=== PATIENT | male | born 1955 | race Caucasian/White ===

== ENCOUNTER 2019-08-17 19:07 | Emergency (ER) | payer OTHER, SELFPAY ==
[2019-08-17 20:31] LABS: Absolute Lymphocytes (CBC) 1.4 K/uL (0.7-4.9); Basophils % 0.8 % (0-1.3); Hematocrit 47.1 % (39.6-49.0); Lymphocytes % 17.4 % (15.3-44.8); RBC Red Blood Cell Count 5.16 M/uL (4.33-5.43)
[2019-08-17 20:33] LABS: Protime INR 1.12
--- NOTE | 2019-08-17 20:42 | RAD REPORT ---
EXAM DESCRIPTION: RAD - Chest Single View - 08/17/2019 8:20 pm CLINICAL HISTORY: Palpitations COMPARISON: November 2008 TECHNIQUE: AP portable chest image was obtained 2012 hours . FINDINGS: Lungs are clear. Heart and vasculature are normal. No measurable pleural effusion and no p neumothorax. No acute bony abnormality seen. No acute aortic findings suspected. No suspicious interv al change. IMPRESSION: No acute cardiopulmonary process.
[2019-08-17 20:47] LABS: ALT/SGPT 35 U/L (12-78); AST/SGOT 18 U/L (15-37); Albumin 4.4 g/dL (3.4-5.0); Alkaline Phosphatase 72 U/L (45-117); BUN Blood Urea Nitrogen 11 mg/dL (7-18); Bicarbonate 25 mmol/L (21-32); Bilirubin Direct 0.2 mg/dL (0-0.2); Bilirubin Total 0.7 mg/dL (0.2-1.0); Glucose Level 96 mg/dL (74-106); Magnesium 2.2 mg/dL (1.8-2.4); NT PRO-BNP 30 pg/mL (<125); Potassium 3.9 mmol/L (3.5-5.1); Protein, Total 7.3 g/dL (6.4-8.2); Sodium Level 141 mmol/L (136-145); Troponin (Emerg Dept Use Only) < 0.02 ng/mL (0.0-0.045)
--- NOTE | 2019-08-17 21:53 | ER ---
Nurse's Notes [facility] Name: Heri Duncan Age: 64 yrs Sex: Male : 1955 Arrival Date: 08/17/2019 Time: 19:12 Bed 27 Private MD: out of town, doctor Diagnosis: Palpitations Presentation: 08/17 19:32 Presenting complaint: Patient states: he states he was checking his pulse oximeter this la1 morning and noticed his pulse was 98 then would drop into the 50s also he was getting different blood pressure readings between his right and left arms also he has been feeling weak, fidgety, and fatigued lately. Transition of care: patient was not received from another setting of care. Onset of symptoms was August 17, 2019. Risk Assessment: Do you want to hurt yourself or someone else? Patient reports no desire to harm self or others. Initial Sepsis Screen: Does the patient meet any 2 criteria? No. Patient's initial sepsis screen is negative. Does the patient have a suspected source of infection? No. Patient's initial sepsis screen is negative. Care prior to arrival: None. 19:32 Method Of Arrival: Ambulatory la1 19:32 Acuity: GRISELDA 3 la1 Historical: - Allergies: 19:40 No Known Allergies; la1 - Home Meds: 19:40 lisinopril-hydrochlorothiazide oral oral [Active]; Lovastatin Oral [Active]; Xanax Oral la1 [Active]; Aspirin Oral [Active]; - PMHx: 19:40 Hypertension; Hyperlipidemia; Anxiety; la1 - PSHx: 19:40 Tonsillectomy; la1 - Immunization history:: Adult Immunizations up to date. - Social history:: Smoking status: Patient/guardian denies using tobacco. - Ebola Screening: : No symptoms or risks identified at this time. Screenin:52 Abuse screen: Denies threats or abuse. Denies injuries from another. Nutritional mg2 screening: No deficits noted. Tuberculosis screening: No symptoms or risk factors identified. Fall Risk IV access (20 points). Assessment: 19:52 General: Appears in no apparent distress. comfortable, Behavior is calm, cooperative. mg2 Pain: Denies pain. Neuro: Level of Consciousness is awake, alert, obeys commands, Oriented to person, place, time, situation. Neuro: Reports weakness. Cardiovascular: Reports since irregular pulse. Respiratory: Airway is patent Respiratory effort is even, unlabored, Respiratory pattern is regular, symmetrical. GI: No signs and/or symptoms were reported involving the gastrointestinal system. : No signs and/or symptoms were reported regarding the genitourinary system. EENT: No signs and/or symptoms were reported regarding the EENT system. Derm: Skin is intact, is healthy with good turgor, Skin is pink, warm \T\ dry. normal. Musculoskeletal: Circulation, motion, and sensation intact. Capillary refill < 3 seconds. 20:57 Reassessment: No changes from previously documented assessment. Patient and/or family ad1 updated on plan of care and expected duration. Pain level reassessed. Patient is alert, oriented x 3, equal unlabored respirations, skin warm/dry/pink. Pain: Denies pain. Pain: Denies pain. 21:52 Reassessment: Patient appears in no apparent distress at this time. No changes from ad1 previously documented assessment. Patient and/or family updated on plan of care and expected duration. Pain level reassessed. Patient is alert, oriented x 3, equal unlabored respirations, skin warm/dry/pink. Pain: Denies pain. 22:15 Pain: Denies pain. ad1 Vital Signs: 19:40 BP 156 / 84 RA (auto/reg); Pulse 88; Resp 16 S; Temp 98.2(O); Pulse Ox 97% on R/A; la1 Weight 98.88 kg (R); Height 5 ft. 8 in. (172.72 cm) (R); Pain 0/10; 19:40 BP 150 / 81 LA Sitting (auto/reg); la1 20:56 BP 135 / 76; Pulse 87; Resp 18; Pulse Ox 97% ; ad1 21:53 BP 145 / 94; Pulse 82; Resp 18; Pulse Ox 96% ; ad1 19:40 Body Mass Index 33.15 (98.88 kg, 172.72 cm) la1 Vitals: 19:40 The patient's bilateral blood pressures are equal. la1 ED Course: 19:12 Patient arrived in ED. ag5 19:13 out of town, doctor is Private Physician. ag5 19:32 Vineet Gipson NP is PHCP. pm1 19:32 Hugh Zamora MD is Attending Physician. pm1 19:38 Triage completed. la1 19:40 Arm band placed on Patient placed in an exam room, on a stretcher, on quality assurance monitor body, la1 on pulse oximetry. EKG completed in triage. Results shown to MD. Family accompanied patient. 19:53 Patient has correct armband on for positive identification. Placed in gown. Cardiac mg2 monitor on. Pulse ox on. NIBP on. 20:14 Missed attempt(s): 22 gauge in right forearm. lt1 20:14 Initial lab(s) drawn, by me, sent to lab. EKG done, by ED staff. Inserted saline lock: lt1 22 gauge in left hand, using aseptic technique. 20:22 XRAY Chest (1 view) In Process Unspecified. EDMS 22:15 No provider procedures requiring assistance completed. IV discontinued, intact, ad1 bleeding controlled, Pressure dressing applied. Patient maintains SpO2 saturation greater than 95% on room air. Administered Medications: No medications were administered Outcome: 21:52 Discharge ordered by MD. pm1 22:15 Discharged to home ad1 22:15 Condition: good 22:15 Discharge instructions given to patient, Instructed on discharge instructions, follow ad1 up and referral plans. Demonstrated understanding of instructions, follow-up care. 22:45 Patient left the ED. ad1 Signatures: Dispatcher [employer] EDMS Deyanira Sullivan RN RN ad1 Kenny Yi RN RN la1 Vineet Gipson, STACY ELEMENTARY READING SPECIALIST pm1 Khadar Vargas RN RN mg2 Gaskin, Ajare ag5 [address] lt1 Corrections: (The following items were deleted from the chart) 22:44 22:15 Pain: Denies pain. ad1 ad1
--- NOTE | 2019-08-17 21:54 | EDPHYS ---
Physician Documentation [facility] Name: Heri Duncan Age: 64 yrs Sex: Male : 1955 Arrival Date: 08/17/2019 Time: 19:12 Bed 27 Private MD: out of town, doctor ED Physician Hugh Zamora HPI: 08/17 19:52 This 64 yrs old Male presents to ER via Ambulatory with complaints of pm1 Irregular Pulse, High Blood Pressure. 19:52 The patient presents with a history of irregular heart beat. Context: The symptoms pm1 occur noticed while checking his pulse ox at home. heart rate changing between 50 to 90s. Onset: The symptoms/episode began/occurred 2 week(s) ago. Duration: The patient or guardian reports multiple episodes, that have now resolved. Modifying factors: The symptoms are aggravated by nothing. The symptoms are alleviated by nothing. Associated signs and symptoms: Pertinent negatives: chest pain, fever, SOB, vomiting. Severity of symptoms: in the emergency department the symptoms have resolved. The patient has not experienced similar symptoms in the past. The patient has not recently seen a physician. Historical: - Allergies: 19:40 No Known Allergies; la1 - Home Meds: 19:40 lisinopril-hydrochlorothiazide oral oral [Active]; Lovastatin Oral [Active]; Xanax Oral la1 [Active]; Aspirin Oral [Active]; - PMHx: 19:40 Hypertension; Hyperlipidemia; Anxiety; la1 - PSHx: 19:40 Tonsillectomy; la1 - Immunization history:: Adult Immunizations up to date. - Social history:: Smoking status: Patient/guardian denies using tobacco. - Ebola Screening: : No symptoms or risks identified at this time. ROS: 19:52 Constitutional: Negative for fever, chills, and weight loss, Eyes: Negative for injury, pm1 pain, redness, and discharge, ENT: Negative for injury, pain, and discharge, Neck: Negative for injury, pain, and swelling, Respiratory: Negative for shortness of breath, cough, wheezing, and pleuritic chest pain. 19:52 Abdomen/GI: Negative for abdominal pain, nausea, vomiting, diarrhea, and constipation, Back: Negative for injury and pain, : Negative for injury, bleeding, discharge, and swelling, MS/Extremity: Negative for injury and deformity, Skin: Negative for injury, rash, and discoloration, Neuro: Negative for headache, weakness, numbness, tingling, and seizure. 19:52 Cardiovascular: Positive for palpitations, Negative for chest pain, edema. Exam: 19:52 Constitutional: This is a well developed, well nourished patient who is awake, alert, pm1 and in no acute distress. Head/Face: Normocephalic, atraumatic. Eyes: Pupils equal round and reactive to light, extra-ocular motions intact. Lids and lashes normal. Conjunctiva and sclera are non-icteric and not injected. Cornea within normal limits. Periorbital areas with no swelling, redness, or edema. ENT: Nares patent. No nasal discharge, no septal abnormalities noted. Tympanic membranes are normal and external auditory canals are clear. Oropharynx with no redness, swelling, or masses, exudates, or evidence of obstruction, uvula midline. Mucous membranes moist. Neck: Trachea midline, no thyromegaly or masses palpated, and no cervical lymphadenopathy. Supple, full range of motion without nuchal rigidity, or vertebral point tenderness. No Meningismus. Chest/axilla: Normal chest wall appearance and motion. Nontender with no deformity. No lesions are appreciated. Cardiovascular: Regular rate and rhythm with a normal S1 and S2. No gallops, murmurs, or rubs. Normal PMI, no JVD. No pulse deficits. Respiratory: Lungs have equal breath sounds bilaterally, clear to auscultation and percussion. No rales, rhonchi or wheezes noted. No increased work of breathing, no retractions or nasal flaring. Abdomen/GI: Soft, non-tender, with normal bowel sounds. No distension or tympany. No guarding or rebound. No evidence of tenderness throughout. Back: No spinal tenderness. No costovertebral tenderness. Full range of motion. Skin: Warm, dry with normal turgor. Normal color with no rashes, no lesions, and no evidence of cellulitis. MS/ Extremity: Pulses equal, no cyanosis. Neurovascular intact. Full, normal range of motion. Vital Signs: 19:40 BP 156 / 84 RA (auto/reg); Pulse 88; Resp 16 S; Temp 98.2(O); Pulse Ox 97% on R/A; la1 Weight 98.88 kg (R); Height 5 ft. 8 in. (172.72 cm) (R); Pain 0/10; 19:40 BP 150 / 81 LA Sitting (auto/reg); la1 20:56 BP 135 / 76; Pulse 87; Resp 18; Pulse Ox 97% ; ad1 21:53 BP 145 / 94; Pulse 82; Resp 18; Pulse Ox 96% ; ad1 19:40 Body Mass Index 33.15 (98.88 kg, 172.72 cm) la1 MDM: 19:44 ED course: Patient's bilateral blood pressures without significant difference between pm1 each other. 19:45 Patient medically screened. pm1 21:51 Data reviewed: vital signs. Data interpreted: Pulse oximetry: on room air is 97 %. pm1 Interpretation: normal. Counseling: I had a detailed discussion with the patient and/or guardian regarding: the historical points, exam findings, and any diagnostic results supporting the discharge/admit diagnosis, lab results, radiology results, the need for outpatient follow up, to return to the emergency department if symptoms worsen or persist or if there are any questions or concerns that arise at home. 08/17 19:40 Order name: Basic Metabolic Panel; Complete Time: : mg2 08/17 19:40 Order name: CBC with Diff; Complete Time: : mg2 08/17 19:40 Order name: LFT's; Complete Time: : mg2 08/17 19:40 Order name: Magnesium; Complete Time: : mg2 08/17 19:40 Order name: NT PRO-BNP; Complete Time: : mg2 08/17 19:40 Order name: PT-INR; Complete Time: : mg2 08/17 19:40 Order name: Troponin (emerg Dept Use Only); Complete Time: 21: mg2 08/17 19:40 Order name: XRAY Chest (1 view); Complete Time: 21:39 mg2 08/17 19:40 Order name: EKG; Complete Time: 19:42 mg2 08/17 19:40 Order name: Cardiac monitoring; Complete Time: 20:19 mg2 08/17 19:40 Order name: EKG - Nurse/Tech; Complete Time: 20:19 mg2 08/17 19:40 Order name: IV Saline Lock; Complete Time: 20:19 mg2 08/17 19:40 Order name: Labs collected and sent; Complete Time: : mg2 08/17 19:40 Order name: O2 Per Protocol; Complete Time: : mg2 08/17 19:40 Order name: O2 Sat Monitoring; Complete Time: : mg2 Administered Medications: No medications were administered Disposition: 08/18 06:05 Co-signature as Attending Physician, Hugh Zamora MD I agree with the assessment and tw4 plan of care. Disposition: 08/17/19 21:52 Discharged to Home. Impression: Palpitations. - Condition is Stable. - Discharge Instructions: Palpitations. - Medication Reconciliation Form, Thank You Letter, Antibiotic Education, Prescription Opioid Use form. - Follow up: Emergency Department; When: As needed; Reason: Worsening of condition. Follow up: Private Physician; When: 2 - 3 days; Reason: Recheck today's complaints, Continuance of care, Re-evaluation by your physician. - Problem is new. - Symptoms have improved. Signatures: Dispatcher [employer] EDNV Deyanira Sullivan RN RN ad1 Kenny Yi RN RN la1 Vineet Gipson, PIPELINER PIPELINER pm1 Hugh Zamora MD MD tw4 Khadar Vargas RN RN mg2 Corrections: (The following items were deleted from the chart) 08/17 22:45 21:52 08/17/2019 21:52 Discharged to Home. Impression: Palpitations. Condition is ad1 Stable. Forms are Medication Reconciliation Form, Thank You Letter, Antibiotic Education, Prescription Opioid Use. Follow up: Emergency Department; When: As needed; Reason: Worsening of condition. Follow up: Private Physician; When: 2 - 3 days; Reason: Recheck today's complaints, Continuance of care, Re-evaluation by your physician. Problem is new. Symptoms have improved. pm1
[2019-08-17 23:19] VITALS: TEMP 98.2
[2019-08-17 23:21] VITALS: BP 145/94; O2SAT 96
--- NOTE | 2019-08-18 13:38 | EKG ---
Test Date: 2019-08-17 Test Time: 19:27:14 Marketing Database Coordinator: JIMMYT MEASUREMENT RESULTS: Intervals: Rate: 92 VT: 168 QRSD: 76 QT: 344 QTc: 425 [place]: P: 48 VT: 168 QRS: -19 T: -7 INTERPRETIVE STATEMENTS: Normal sinus rhythm Moderate voltage criteria for LVH, may be normal variant Borderline ECG Compared to ECG 08/17/2019 19:26:39 Fusion complex(es) no longer present Electronically Signed On 08-18-19 13:37:46 CDT by Marko Deleon
--- NOTE | 2019-08-18 13:39 | EKG ---
Test Date: 2019-08-17 Test Time: 19:26:39 Nurse Aide Evaluator: JIMMYT MEASUREMENT RESULTS: Intervals: Rate: 88 MT: 166 QRSD: 82 QT: 340 QTc: 411 [place]: P: 37 MT: 166 QRS: -20 T: -4 INTERPRETIVE STATEMENTS: Sinus rhythm Moderate voltage criteria for LVH, may be normal variant Borderline ECG Compared to ECG 12/10/2008 13:56:20 Ventricular premature complex(es) no longer present Electronically Signed On 08-18-19 13:38:14 CDT by Marko Deleon
== END 2019-08-17 22:45 | disposition home or self-care (01) ==
LOC: ER 19:07
DX: R00.2 Palpitations (principal); I10 Essential (primary) hypertension; E78.5 Hyperlipidemia, unspecified; F41.9 Anxiety disorder, unspecified; Z79.82 Long term (current) use of aspirin
CPT/HCPCS: 36415; 71045; 80048; 80076; 83735; 83880; 84484; 85025; 85610; 93005; 99285

== ENCOUNTER 2025-03-12 14:02 | Emergency (ER) | payer OTHER ==
--- OUTSIDE RECORDS SUMMARY | 2025-03-12 14:05 | XMS REPORT | Continuity of Care Document ---
Author Name Unknown Address [address] [place] [address] [facility] Address [address] [place] [address] Care Team Providers Care Mold Sheet Cleaner Name Role Phone KRISTEN STONE Primary Care Physician Unavailab Eloy Lee Attending Clinician Unavailable RADIOLOGY Attending Clinician Unavailable Radiology Attending Clinician Unavailable JAVON POOLE Attending Clinician Unavail able JAVON POOLE Attending Clinician Unavail able Javon Poole MD Attending Clinician [phone] OSVALDO WINTER Attending Clinician Unavailable Osvaldo Winter MD Attending Clinician [phone] Doctor Unassigned, Kotlik Attending Clinician U navailable Lab, Ang - Db Attending Clinician Unavailable LEILA OBONOMELANIA DAWNARIA Attending Clinician Un available ACOSTA VEGA Admitting Clinician Unavailable JAVON POOLE Admitting Clinician Unavail able Payers Payer Name Policy Type Policy Number Effective Date Expirati on Date Source [facility] [employer] [place] [id number] 2021 00:00:00 Problems Condition Name Condition Details Condition Category Status Onset Date Resolution Date Last Treatment Date Treating Clinician Comments Source No known active problems No known active problems Disease [facility] Allergies, Adverse Reactions, Alerts Allergy Name Allergy Type Status Severity Reaction(s) Onset Date Inactive Date Treating Clinician Comments Source NO KNOWN ALLERGIE S Drug Class Active [facility] Social History Social Habit Start Date Stop Date Quantity Comments Source History of tobacco use Current smoker [facility] [place] [place] Exposure to SARS-CoV-2 (event) 2022-12-04 00:00:00 2022-12-14 08:41:[address] [facility] [place] [place] Tobacco use and exposure 2022-05-09 00:00:00 2022-05-09 00:00:00 Smokeless tobacco non-user [facility] [place] [place] Sex Ass[birth year] At 1955 00:00:00 1955 00:00:[address] [facility] [place] [place] Smoking Status Start Date Stop Date Source Ex-smoker 2022-05-09 00:00:00 2022-[facility]09 [facility] Ordered Medication Name Filled Medication Name Start Date Stop Date Current Medication? Ordering Clinician Indication Dosage Frequency Signature (SIG) Comments Components Source gabapentin 100 mg capsule 08-01 00:00: 00 Yes [id number] 100mg Take 1 capsule by mouth in the morning and 1 capsule at noon and 1 capsule in the evening. [facility] losartan 100 mg tablet 04-18 00:00: 00 Yes 100mg Take 100 mg by mouth daily. [facility] lovastatin 40 mg tablet 04-18 00:00: 00 Yes TAKE ONE (1) TABLET(S) BY MOUTH ONCE DAILY WITH EVENING MEAL. [facility] ALPRAZolam 0.5 mg tablet 04-17 00:00: 00 Yes .5mg Take 0.5 mg by mouth 2 (two) times daily. [facility] Vital Signs Vital Name Observation Time Observation Value Comments S soumya Systolic blood pressure 2022-08-01 14:17:00 143 mm[Hg] [facility] Diastolic blood pressure 2022-08-01 14:17:00 84 mm[Hg] [facility] Heart rate 2022-08-01 14:17:00 72 /min [facility] Body height 2022-08-01 14:17:00 172.7 cm [facility] Body weight 2022-08-01 14:17:00 104.327 kg [facility] BMI 2022-08-01 14:17:00 34.97 kg/m2 [facility] Oxygen saturation in Arterial blood by Pulse oximetry 2022-08-01 14:17:00 98 /min [facility] [place] [place] Procedures Procedure Date / Time Performed Performing Clinicia n Source CT ABDOMEN PELVIS WO CONTRAST 2022-12-18 18:32:[address] [facility] [place] [place] NOTICE OF PRIVACY PRACTICES 2022-12-18 17:32:02 Doctor Unassigned, Kotlik [facility] [place] [place] CONSENT/REFUSAL FOR DIAGNOSIS AND TREATMENT 2022-12-18 17:31:42 Doctor Unassigned, Kotlik [facility] [place] [place] ASSIGNMENT OF BENEFITS 2022-12-18 17:31:19 Docto r Unassigned, Kotlik [facility] [place] [place] Encounters Start Date/Time End Date/Time Encounter Type Admission Type Attending Clinicians Care Facility Care Department Encounter ID Source 2021-12-21 13:20:45 Outpatient Raphael [facility] [id number] [facility] 2021-12-21 11:59:27 Outpatient Raphael [facility] [id number] [facility] 2022-12-18 11:33:29 2022-12-18 23:59:00 Outpatient R RADIOLOGY [facility] [id number] [facility] 2022-12-18 11:33:29 2022-12-18 23:59:00 Hospital Encounter Radiology [facility] [id number] 350.1.13.10 [id number] [id number] [facility] 2022-12-18 00:00:00 2022-12-18 00:00:00 Outpatient R RADIOLOGY [facility] [id number] [facility] 2022-08-01 09:20:00 2022-08-01 09:46:40 Outpatient R JAVON POOLE [facility] [id number] [facility] 2022-08-01 09:20:00 2022-08-01 09:46:40 Office Visit Javon Pooel [facility] [id number] 350.1.13.10 4.2.7.2.686 [id number] [facility] 2022-07-28 09:04:21 2022-07-28 23:59:00 Outpatient R OSVALDO WINTER [facility] [id number] [facility] 2022-07-28 09:04:21 2022-07-28 23:59:00 [facility] [id number] [facility] 2022-07-28 09:04:21 2022-07-28 23:59:00 Hospital Encounter Osvaldo Winter [facility] 1..840.114 350.1.13.10 4.2.7.2.686 [id number] [facility] 2022-06-06 00:00:00 2022-06-06 00:00:00 Orders Only Doctor Unassigned, Kotlik [facility] 1..840.114 350.1.13.10 4.2.7.2.686 [id number] [facility] 2022-05-15 13:52:14 2022-05-15 23:59:00 Outpatient JAVON MONROE [facility] [id number] [facility] 2022-05-15 13:50:00 2022-05-15 23:59:00 Hospital Encounter Javon Poole [facility] 1..840.114 350.1.13.10 4.2.7.2.686 [id number] [facility] 2022-05-15 00:00:00 2022-05-15 00:00:00 Outpatient Melania POOLE JAVON POOLE JAVON [facility] [id number] [facility] 2022-05-10 12:00:00 2022-05-10 12:15:00 Form Drafter Visit Lab, Ang - Db Javon Poole [facility] [id number] 350.1.13.10 [id number] [id number] [facility] 2022-05-10 12:00:00 2022-05-10 12:00:00 Outpatient JAVON MONROE IMELDA JAVON [facility] [id number] [facility] 2022-05-09 14:12:27 2022-05-09 23:59:00 Outpatient Melania IMELDAJAVON PATHAK JAVON [facility] [id number] [facility] 2022-05-09 13:00:00 2022-05-09 14:02:13 Office Visit Javon Poole [facility] 1.2.840.114 350.1.13.10 4.2.7.2.686 [id number] [facility] 2022-05-09 13:00:00 2022-05-09 14:02:13 Outpatient JAVON MONROE IMELDA JAVON [facility] [id number] [facility] 2022-05-09 00:00:00 2022-05-09 00:00:00 Orders Only Doctor Unassigned, Kotlik [facility] 1.2.840.114 350.1.13.10 4.2.7.2.686 [id number] [facility] 2022-02-06 09:45:00 2022-02-06 13:05:00 Outpatient YONI DEE [facility] [id number]
--- NOTE | 2025-03-12 14:23 | ER ---
Nurse's Notes [facility] Name: Heri Duncan Age: 69 yrs Sex: Male : 1955 Arrival Date: 03/12/2025 Time: 14:02 Bed 11 Private MD: Diagnosis: De quervain's tenosynovitis Presentation: 03/12 14:11 Chief complaint: Patient states: there a knot or fluid under the skin that is painful , iw started a week ago, denies injury. Coronavirus screen: At this time, the client does not indicate any symptoms associated with coronavirus-19. Ebola Screen: No symptoms or risks identified at this time. Initial Sepsis Screen: Does the patient meet any 2 criteria? No. Patient's initial sepsis screen is negative. Does the patient have a suspected source of infection? No. Patient's initial sepsis screen is negative. Risk Assessment: Do you want to hurt yourself or someone else? Patient reports no desire to harm self or others. Onset of symptoms was March 05, 2025. 14:11 Method Of Arrival: Ambulatory iw 14:11 Acuity: GRISELDA 4 iw Historical: - Allergies: 14:13 No Known Allergies; iw - PMHx: 14:13 Anxiety; Hyperlipidemia; Hypertension; iw - Immunization history:: Adult Immunizations. - Infectious Disease History:: Denies. - Social history:: Smoking status: Patient denies any tobacco usage or history of. Screenin:41 [facility] ED Fall Risk Assessment (Adult) History of falling in the last 3 months, iw including since admission No falls in past 3 months (0 pts) Confusion or Disorientation No (0 pts) Intoxicated or Sedated No (0 pts) Impaired Gait No (0 pts) Mobility Assist Device Used No (0 pt) Altered Elimination No (0 pt) Score/Fall Risk Level 0 - 2 = Low Risk Maintained a safe environment, Hourly rounding (assess needs \T\ fall precautionary measures) done. Abuse screen: Denies threats or abuse. Nutritional screening: No deficits noted. Tuberculosis screening: No symptoms or risk factors identified. Assessment: 14:40 General: Appears in no apparent distress. Behavior is calm, cooperative, appropriate iw for age. Pain: Complains of pain in L thumb Pain radiates to left hand Quality of pain is described as aching, throbbing. Musculoskeletal: Circulation, motion, and sensation intact. Capillary refill < 3 seconds, in left fingers. Reports pain in L wrist/thumb area. Vital Signs: 14:11 BP 155 / 81; Pulse 99; Resp 16; Temp 97.8; Pulse Ox 99% on R/A; iw ED Course: 14:04 Patient arrived in ED. im 14:09 Justine Jansen MD is Attending Physician. sw6 14:12 Triage completed. iw 14:13 Arm band placed on. iw 14:22 Mayito Meraz MD is Referral Physician. sw6 14:38 Velcro wrist splint applied to left wrist. iw 14:41 No provider procedures requiring assistance completed. Patient did not have IV access iw during this emergency room visit. 14:43 Patient has correct armband on for positive identification. Provided Education on: iw return to ED for worsening symptoms. Administered Medications: No medications were administered Medication: 14:44 VIS not applicable for this client. iw Outcome: 14:22 Discharge ordered by . sw6 14:41 Discharged to home ambulatory, iw 14:41 Condition: stable 14:41 Discharge instructions given to patient, Instructed on discharge instructions, follow up and referral plans. medication usage, Demonstrated understanding of instructions, follow-up care, splint care, 14:44 Patient left the ED. iw Signatures: Nahed Jansen, RN RN Payal Pantoja Justine Jansen MD MD sw6
--- NOTE | 2025-03-12 14:23 | EDPHYS ---
Physician Documentation [facility] Name: Heri Duncan Age: 69 yrs Sex: Male : 1955 Arrival Date: 03/12/2025 Time: 14:02 Bed 11 Private MD: ED Physician Justine Jansen HPI: 03/12 14:18 This 69 yrs old Male presents to ER via Ambulatory with complaints of Hand sw6 Pain, Hand Swelling. 14:18 The patient presents from home for evaluation for left thumb pain that is been getting sw6 worse for the past several weeks. No injury or trauma. No fevers or chills. 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 He tried a topical diclofenac at home and reports it did not help. He is right-handed. Here for evaluation.. Historical: - Allergies: 14:13 No Known Allergies; iw - PMHx: 14:13 Anxiety; Hyperlipidemia; Hypertension; iw - Immunization history:: Adult Immunizations. - Infectious Disease History:: Denies. - Social history:: Smoking status: Patient denies any tobacco usage or history of. ROS: 14:18 Cardiovascular: Negative for chest pain, palpitations, and edema, Respiratory: Negative sw6 for shortness of breath, cough, wheezing, and pleuritic chest pain, Abdomen/GI: Negative for abdominal pain, nausea, vomiting, diarrhea, and constipation, 14:18 MS/extremity: Positive for decreased range of motion, pain, 14:18 All other systems are negative, Exam: 14:18 Constitutional: This is a well developed, well nourished patient who is awake, alert, sw6 and in no acute distress. Cardiovascular: Regular rate and rhythm with a normal S1 and S2. No gallops, murmurs, or rubs. Normal PMI, no JVD. No pulse deficits. Respiratory: Lungs have equal breath sounds bilaterally, clear to auscultation and percussion. No rales, rhonchi or wheezes noted. No increased work of breathing, no retractions or nasal flaring. Abdomen/GI: Soft, non-tender, with normal bowel sounds. No distension or tympany. No guarding or rebound. No evidence of tenderness throughout. 14:18 Musculoskeletal/extremity: +2 radial pulse left side. He has mild swelling along the tendon sheath of the left thumb. Decreased range of motion of the MCP joint of his left thumb due to pain.. Vital Signs: 14:11 BP 155 / 81; Pulse 99; Resp 16; Temp 97.8; Pulse Ox 99% on R/A; iw MDM: 14:18 Differential diagnosis: tendonitis. Data reviewed: vital signs, nurses notes. 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 He is right-handed. He tried some topical diclofenac and reports it has not helped. Vital signs are stable in the ER. He has mild swelling over the tendon sheath of his left thumb as well as decreased range of motion of the left first MCP joint. +2 radial pulse left side. Suspect de Quervain's tenosynovitis. Will give a thumb spica splint and a course steroids. He remained stable in the ER and is okay for discharge home with orthopedics follow-up.. 14:22 Medical Screening Exam initiated 03/12 14:31 Order name: Thumb Spica Splint; Complete Time: 14:40 iw Administered Medications: No medications were administered Disposition Summary: 03/12/25 14:22 Discharge Ordered Notes: Location: Home sw6 Condition: Stable sw6 Diagnosis - De quervain's tenosynovitis sw6 Followup: sw6 - With: Mayito Meraz MD - When: 2 - 3 days - Reason: Discharge Instructions: - Discharge Summary Sheet sw6 - De Quervain's Tenosynovitis sw6 - De Quervain's Tenosynovitis Surgical Release Forms: - Medication Reconciliation Form 6 - Antibiotic Education sw6 - Prescription Opioid Use sw6 - Patient Portal Instructions 6 - Leadership Thank You Letter 6 Prescriptions: - Prednisone 20 mg Oral Tablet - take 3 tablets ORAL route once daily for 5 days; 15 tablet; Refills: 0, Product Selection Permitted Signatures: Nahed Jansen RN RN iw Justine Jansen MD MD
[2025-03-12 14:50] VITALS: BP 155/81; TEMP 97.8; O2SAT 99
== END 2025-03-12 14:44 | disposition home or self-care (01) ==
LOC: ER 14:02
DX: M65.4 Radial styloid tenosynovitis [de Quervain] (principal)